=== PATIENT | female | born 1990 | race African-American/Black ===

== ENCOUNTER 2018-07-02 10:01 | Emergency (ER) | payer MEDICAID, OTHER ==
[~2018-07-02] VITALS: Ht 172.7 cm; Wt 108.4 kg
[~2018-07-02 10:01] MED LIST: PREN-129 OR
[2018-07-02 11:28] LABS: Basophils # (auto) 0 uL; Hemoglobin 9.1 g/dL (12.2-16.2); White Blood Cell 8.3 10^3/uL (4.4-10.8)
[2018-07-02 11:33] LABS: Basophils % (auto) 0.4 % (0.0-2.0); Eosinophils # (auto) 0.1 uL; Eosinophils % (auto) 1.6 % (0.0-7.0); Hematocrit 29.2 % (36.0-46.0); Lymphocytes # (auto) 2.5 uL; Mean Corpuscular Hemoglobin 19.2 pg (28.0-32.0); Mean Corpuscular Hgb Conc. 31.3 g/dL (32.0-36.0); Mean Corpuscular Volume 61.4 fL (80.0-100.0); Monocytes # (auto) 0.4 uL; Monocytes % (auto) 5.3 % (0.0-12.0); Neutrophils # (auto) 5.2 uL; Neutrophils % (auto) 62.7 % (37.0-80.0); Nucleated Red Blood Cells % 0.1 %; Platelet Count (auto) 355 10^3/uL (140-450); Red Blood Cells 4.76 10^6/uL (4.0-5.20)
[2018-07-02 11:44] LABS: Red Cell Distribution Width 21.5 % (11.8-14.3)
[2018-07-02 12:26] VITALS: BP 119/54
== END 2018-07-02 14:25 | disposition home or self-care (01) ==
LOC: ER 10:01
DX: O03.9 Complete or unspecified spontaneous abortion without complication (principal); O99.511 Diseases of the respiratory system complicating pregnancy, first trimester; J45.909 Unspecified asthma, uncomplicated; Z3A.01 Less than 8 weeks gestation of pregnancy
CPT/HCPCS: 36415; 76801; 76817; 84702; 85025

== ENCOUNTER 2019-06-16 10:58 | Inpatient (IN) | payer MEDICAID ==
[~2019-06-16] VITALS: Ht 167.6 cm; Wt 121.2 kg
[2019-06-16] MEDS ORDERED: ACETAMINOPHEN 650 mg PER 20 mL UD PO ONE (11:15)
[2019-06-16 11:54] LABS: Basophils # (auto) 0.1 uL; Eosinophils # (auto) 0 uL; Hemoglobin 8.4 g/dL (12.2-16.2); Lymphocytes # (auto) 2.2 uL; Mean Corpuscular Volume 56.5 fL (80.0-100.0); Nucleated Red Blood Cells % 0.1 %
[2019-06-16 11:55] LABS: Basophils % (auto) 0.7 % (0.0-2.0); Hematocrit 27.4 % (36.0-46.0); Lymphocytes % (auto) 17.1 % (10.0-50.0); Mean Corpuscular Hemoglobin 17.4 pg (28.0-32.0); Mean Corpuscular Hgb Conc. 30.8 g/dL (32.0-36.0); Monocytes # (auto) 1.8 uL; Monocytes % (auto) 13.8 % (0.0-12.0); Neutrophils # (auto) 8.9 uL; Neutrophils % (auto) 68.4 % (37.0-80.0); Platelet Count (auto) 309 10^3/uL (140-450); Red Blood Cells 4.85 10^6/uL (4.0-5.20)
[2019-06-16 12:09] LABS: Urine Bacteria FEW /hpf (None Seen); Urine Blood 3+ /uL (Negative); Urine Specific Gravity 1.011 (1.001-1.035); Urine WBC 394 /hpf (0 - 5)
[2019-06-16 12:10] LABS: Red Cell Distribution Width 22.2 % (11.8-14.3)
[2019-06-16 12:29] LABS: Albumin 3.6 g/dL (3.4-5.0); Calcium 8.8 mg/dL (8.5-10.1); Potassium 3.4 mmol/L (3.5-5.1)
[2019-06-16 12:35] LABS: BUN/Creatinine Ratio 6.4; Bilirubin, Total 0.7 mg/dL (0.2-1.0)
[2019-06-16] MEDS ORDERED: SODIUM CHLORIDE 0.9% 1,000 ML IVB ONE (12:55)
[2019-06-16] MEDS ORDERED: PROMETHAZINE HCL 25 MG/ML 1ML IV PRN (13:00)
[2019-06-16 13:23] LABS: Magnesium 2.3 mg/dL (1.6-2.6)
[2019-06-16 13:38] LABS: Alcohol, Urine < 3.0 mg/dL (0-5); Amphetamine Screen, Urine NEGATIVE (NEGATIVE); Barbiturate Scree,Urine NEGATIVE (NEGATIVE); Benzodiazephine Screen, Urine NEGATIVE (NEGATIVE); Cannabinoid Screen, Urine POSITIVE (NEGATIVE); Cocaine Screen, Urine NEGATIVE (NEGATIVE); Phencyclidine Screen, Urine NEGATIVE (NEGATIVE)
[2019-06-16 13:46] LABS: Opiate Scree,Urine NEGATIVE (NEGATIVE)
[2019-06-16] MEDS ORDERED: cefTRIAXone 1GM/50ML D5W 50 ML IV ONE (15:00)
[2019-06-16] MEDS ORDERED: IBUPROFEN 800 MG TAB PO ONE (15:00)
[2019-06-16] MEDS ORDERED: ACETAMINOPHEN 325 MG TAB PO ONE (15:00)
[2019-06-16] MEDS ORDERED: SODIUM CHLORIDE 0.9% 1,000 ML IV ONE (15:00)
[2019-06-16] MEDS ORDERED: MORPHINE SULF INJ 2 MG/ML SYRINGE 1ML IV PRN (18:45)
[2019-06-16] MEDS ORDERED: ALBUTEROL SULF 2.5 MG/0.5ML(0.5%) NEB SOLN NEB PRN (18:45)
[2019-06-16] MEDS ORDERED: IPRATROPIUM BROM 0.5 MG/2.5ML INH SOL NEB PRN (18:45)
[2019-06-16] MEDS ORDERED: ONDANSETRON HCL 4 MG/2 ML VIAL IV PRN (18:45)
[2019-06-16] MEDS: SOD CHL 0.9%/ KCL 20MEQ 1,000 ML IV SCH (19:10)
[2019-06-16 19:20] VITALS: BP 112/65
--- NOTE | 2019-06-16 19:30 | NUR ---
MS admit from [facility] admitted to tele/MS after SBAR received. Patient oriented to Lissett Chavez, RN primary RN, unit, room, bed, and unit policies regarding patient care and visiting hours. Patient weighed by bedscale and encouraged to call if they need something. All questions and concerns addressed, patient verbalized understanding, will continue to monitor Note:
--- NOTE | 2019-06-16 19:55 | NUR ---
RT NOTE PT WAS SEEN BY RT FOR PRN HHN TX. PT STATES NO TREATMENT NEEDED AT THIS TIME. NO SOB OR DISTRESS NOTED. HR 81, RR 16, BS CTA, POX 97% ON ROOM AIR. CONT PRN NEEDED Addendum: 06/16/19 at 2017 by Kelley Munguia RT Amended: Links added.
[2019-06-16 20:00] VITALS: BP 108/55
[2019-06-16 20:20] VITALS: BP 112/65
[2019-06-16] MEDS: HYDROcodone-ACET 5/325MG TAB PO PRN (21:32)
[2019-06-16 22:00] VITALS: BP 108/55
--- NOTE | 2019-06-16 23:25 | NUR ---
RT NOTE PT WAS SEEN BY RT FOR HHN TX. PT TOLERATES WELL VIA MOUTHPIECE. NO ADVERSE REACTION NOTED. NEW HHN SET UP IN ROOM . CONT ORDERED Addendum: 06/16/19 at 2337 by Kelley Munguia RT Amended: Links added.
[2019-06-17] VITALS (8 sets, daily range): BP systolic 105–122; BP diastolic 44–59
[2019-06-17] MEDS: ACETAMINOPHEN 500 MG TAB PO PRN ×2 (05:01→14:59)
[2019-06-17] MEDS: SOD CHL 0.9%/ KCL 20MEQ 1,000 ML IV SCH ×3 (06:07→22:46)
[2019-06-17 06:26] LABS: Basophils # (auto) 0 uL; Eosinophils # (auto) 0 uL; Eosinophils % (auto) 0.1 % (0.0-7.0); Mean Corpuscular Volume 56.7 fL (80.0-100.0); Monocytes # (auto) 0.8 uL; Neutrophils # (auto) 6.5 uL; Nucleated Red Blood Cells % 0.1 %
[2019-06-17 06:28] LABS: Basophils % (auto) 0.2 % (0.0-2.0); Hematocrit 21.7 % (36.0-46.0); Lymphocytes % (auto) 12.1 % (10.0-50.0); Mean Corpuscular Hgb Conc. 31.8 g/dL (32.0-36.0); Monocytes % (auto) 9.5 % (0.0-12.0); Neutrophils % (auto) 78.1 % (37.0-80.0); Platelet Count (auto) 259 10^3/uL (140-450); Red Blood Cells 3.82 10^6/uL (4.0-5.20); White Blood Cell 8.4 10^3/uL (4.4-10.8)
--- NOTE | 2019-06-17 06:40 | NUR ---
PT ASSESSED FOR PRN HHN TX. PT IS ON ROOM AIR, SPO2 99%, HR 98, RR 16. NO S/S OF RESPIRATORY DISTRESS. PT AWARE TO HAVE RT PAGED IF BREATHING TX INDICATED. WILL CONTINUE TO MONITOR.
[2019-06-17 06:41] LABS: BUN/Creatinine Ratio 6.8; Potassium 3.5 mmol/L (3.5-5.1)
--- NOTE | 2019-06-17 06:50 | NUR ---
Received a critical Hemoglobin of 6.9. Paged hospitalist, awaiting call back
[2019-06-17 06:52] LABS: Red Cell Distribution Width 21.9 % (11.8-14.3)
[2019-06-17 06:55] LABS: Hemoglobin 6.9 g/dL (12.2-16.2)
--- NOTE | 2019-06-17 07:16 | NUR ---
Hospitalist Aly called back and received order for Type and Screen and to Transfuse 1 unit PRBC. Acknowledged and read back. Will endorse to shyam JAQUEZ
--- NOTE | 2019-06-17 07:30 | NUR ---
Opening Shift Note Assumed care of patient, awake and alert X 4. No S/S of distress/SOB. Patient c/o head and back pain rates it 01/14. Will administer medications as prescribed by MD. Bed in low position locked and with two side rails. Patient instructed on POC and to call for assistance PRN, will continue to monitor for changes Q1hr and PRN. Signed: 06/17/19 at 1139 by ABDI DUTTA SN <Co-Signature Required> Co-Signed: 06/17/19 at 1139 by Marielle Savage RN
[2019-06-17] MEDS: PANTOPRAZOLE 40 MG TAB PO SCH (09:04)
[2019-06-17] MEDS: HYDROcodone-ACET 5/325MG TAB PO PRN (09:05)
[2019-06-17] MEDS: cefTRIAXone 1GM/50ML D5W 50 ML IV SCH (09:05)
[2019-06-17 11:02] LABS: % Iron Saturation 2.7 % (15-50)
--- NOTE | 2019-06-17 11:05 | NUR ---
DR ZHONG AT BEDSIDE NEW ORDERS RECEIVED. PATIENT UPGRADING TO TELEMETRY. WILL PASS NEW ORDERS TO KAREY JAQUEZ. Signed: 06/17/19 at 1153 by ABDI DUTTA SN <Co-Signature Required> Co-Signed: 06/17/19 at 1153 by Marielle Savage RN
--- NOTE | 2019-06-17 11:05 | NUR ---
IV Blood infusion started. vitals: BP111/63, HR 89, RR 18, SPO2 100% T 100.2 Patient is comfortably laying in bed on 2L NC, no s/s of distress/sob noted/stated.
[2019-06-17 18:48] LABS: Hemoglobin 8.2 g/dL (12.2-16.2)
[2019-06-17 18:51] LABS: Hematocrit 26.2 % (36.0-46.0)
--- NOTE | 2019-06-17 19:06 | NUR ---
Endorsed care to NOC RN.
--- NOTE | 2019-06-17 20:00 | NUR ---
Opening Shift Note Assumed care of patient, awake and alert. No S/S of distress/SOB or pain. Instructed on POC and to call for assist PRN, will continue to monitor for changes Q1hr and PRN. Signed: 06/17/19 at 2226 by ABDI WATTS SN <Co-Signature Required> Co-Signed: 06/17/19 at 2226 by ARSH RUBIO RN
--- NOTE | 2019-06-17 22:00 | NUR ---
HOSPITALIST PAGED PATIENT REQUESTING SLEEPING PILL. WILL AWAIT CALL BACK OR ORDERS.
[2019-06-17] MEDS: TEMAZEPAM 15 MG CAP PO PRN (22:44)
--- NOTE | 2019-06-17 23:00 | NUR ---
Respiratory note: PT RECIEVED ON RA. PT IS AWAKE AND ALERT AT THIS TIME. NO RESP DISTRESS NOTED. SPO2 97%, HR 80, RR 18. BS CLEAR/DIM. NO PRN TX INDICATED AT THIS TIME. WILL CONTINUE TO MONITOR PT T/O SHIFT.
[2019-06-18 05:07] VITALS: BP 96/67
[2019-06-18 06:59] LABS: Basophils # (auto) 0 uL; Eosinophils # (auto) 0.1 uL; Hemoglobin 7.8 g/dL (12.2-16.2); Lymphocytes # (auto) 1.6 uL; Mean Corpuscular Volume 59.3 fL (80.0-100.0); Monocytes # (auto) 0.8 uL
[2019-06-18 07:01] LABS: Basophils % (auto) 0.5 % (0.0-2.0); Calcium 8.2 mg/dL (8.5-10.1); Eosinophils % (auto) 1.7 % (0.0-7.0); Hematocrit 24.4 % (36.0-46.0); Lymphocytes % (auto) 29.1 % (10.0-50.0); Mean Corpuscular Hemoglobin 18.9 pg (28.0-32.0); Mean Corpuscular Hgb Conc. 31.9 g/dL (32.0-36.0); Monocytes % (auto) 14.1 % (0.0-12.0); Neutrophils % (auto) 54.6 % (37.0-80.0); Nucleated Red Blood Cells % 0.2 %; Platelet Count (auto) 254 10^3/uL (140-450); Potassium 3.9 mmol/L (3.5-5.1); Red Blood Cells 4.11 10^6/uL (4.0-5.20); White Blood Cell 5.5 10^3/uL (4.4-10.8)
--- NOTE | 2019-06-18 07:01 | NUR ---
Respiratory note: ROUTINE PRN TX ASSESSMENT DONE. HR 73, RR 16, POX 98% ON RA, BREATH SOUNDS ARE CLEAR/DIMINISHED. NO SOB OR DISTRESS NOTED AT THIS TIME. PT WAS NOTIFY TO HAVE RT PAGE FOR NEEDED MN TX.
[2019-06-18 07:06] LABS: BUN/Creatinine Ratio 7.5
--- NOTE | 2019-06-18 07:16 | NUR ---
Opening Shift Note Assumed care of patient, awake and alert. No S/S of distress/SOB or pain. Instructed on POC and to call for assist PRN, will continue to monitor for changes Q1hr and PRN.
[2019-06-18 08:09] VITALS: BP 112/61
[2019-06-18 09:00] VITALS: BP 112/61
[2019-06-18] MEDS: cefTRIAXone 1GM/50ML D5W 50 ML IV SCH (09:05)
[2019-06-18] MEDS: PANTOPRAZOLE 40 MG TAB PO SCH (09:05)
[2019-06-18] MEDS: SOD CHL 0.9%/ KCL 20MEQ 1,000 ML IV SCH ×3 (09:06→23:46)
--- NOTE | 2019-06-18 10:44 | NUR ---
, Dr. Tan at bedside Updated pt and family on POC.
[2019-06-18] MEDS ORDERED: SODIUM FERR GLUC 62.5MG/5ML 125 MG in SODIUM CHL 0.9% 100 ML IV ONE (12:15)
[2019-06-18 13:00] VITALS: BP 124/72
--- NOTE | 2019-06-18 13:30 | NUR ---
OUTSIDE SALES ACCOUNT EXECUTIVE at bedside, Wilda Britt For urology consult. Updated pt on POC.
[2019-06-18 17:00] VITALS: BP 112/70
--- NOTE | 2019-06-18 17:08 | NUR ---
, Dr. Ugalde at bedside For hematology consult. Reviewed POC with patient.
[2019-06-18] MEDS: FERROUS SULFATE 325 MG TAB PO SCH (19:06)
--- NOTE | 2019-06-18 19:20 | NUR ---
Opening Shift Note Received report and assumed care of patient, awake and alert. No S/S of distress/SOB or pain. Instructed patient to call for assist if needed and patient verbalized understanding. Will continue to monitor .
--- NOTE | 2019-06-18 19:31 | NUR ---
Campbell catheter insertion Patient assessed and determined to be in need of campbell catheter. Order obtained from MD. Patient educated on catheter and reason for insertion. All questions answered. Campbell catheter 16 gauge Mohawk inserted with clean sterile technique. Patient tolerated well.
[2019-06-18 22:00] VITALS: BP 121/70
--- NOTE | 2019-06-18 22:16 | NUR ---
Respiratory note: NO PRN TX GIVEN AT THIS TIME, NOT INDICATED. NO SOB NOTED. SPO2 100% ON RA, HR 77, RR 20. PT COMPLAINING OF PAIN DUE TO EUCEDA CATHETER, RN NOTIFIED.
[2019-06-18] MEDS: TEMAZEPAM 15 MG CAP PO PRN (23:45)
[2019-06-19 05:49] VITALS: BP 114/69
--- NOTE | 2019-06-19 06:30 | NUR ---
Lau catheter insertion Lau catheter inserted for renal scan today.Patient educated on catheter and reason for insertion. All questions answered. Lau catheter 14 guage Ugandan inserted with clean sterile technique. Patient tolerated well.
[2019-06-19 07:11] LABS: Basophils # (auto) 0 uL; Eosinophils # (auto) 0.2 uL; Hemoglobin 8.3 g/dL (12.2-16.2); Monocytes # (auto) 0.4 uL; Neutrophils # (auto) 2.9 uL; Nucleated Red Blood Cells % 0.2 %; Platelet Count (auto) 320 10^3/uL (140-450)
[2019-06-19 07:13] LABS: Basophils % (auto) 0.5 % (0.0-2.0); Eosinophils % (auto) 3.6 % (0.0-7.0); Hematocrit 25.8 % (36.0-46.0); Lymphocytes # (auto) 1.6 uL; Lymphocytes % (auto) 31.2 % (10.0-50.0); Mean Corpuscular Hemoglobin 19.1 pg (28.0-32.0); Mean Corpuscular Hgb Conc. 32.1 g/dL (32.0-36.0); Mean Corpuscular Volume 59.5 fL (80.0-100.0); Monocytes % (auto) 8.6 % (0.0-12.0); Neutrophils % (auto) 56.1 % (37.0-80.0); Red Blood Cells 4.35 10^6/uL (4.0-5.20); White Blood Cell 5.1 10^3/uL (4.4-10.8)
[2019-06-19 07:15] LABS: Red Cell Distribution Width 26.1 % (11.8-14.3)
[2019-06-19 07:23] LABS: Calcium 8.9 mg/dL (8.5-10.1)
[2019-06-19 07:25] LABS: BUN/Creatinine Ratio 8.8
--- NOTE | 2019-06-19 07:25 | NUR ---
Open Shift Note Received report on patient, awake and sitting up in bed. Patient shows no signs of distress at this time. Patient states having no pain at this time but slight discomfort with having the Lau placed. Discussed POC with patient and plans for renal scan. Bed in lowest locked position, side rails up x2 and call light within reach. Will continue to monitor.
[2019-06-19] MEDS: cefTRIAXone 1GM/50ML D5W 50 ML IV SCH (08:50)
[2019-06-19] MEDS: PANTOPRAZOLE 40 MG TAB PO SCH (08:51)
[2019-06-19] MEDS: FERROUS SULFATE 325 MG TAB PO SCH (08:51)
[2019-06-19 09:00] VITALS: BP 111/62
--- NOTE | 2019-06-19 10:53 | NUR ---
Respiratory note: PT REFUSED PRN MED NEB TX, NO TX DESIRED NOR INDICATED. NO DISTRESS NOTED, DENIES SOB. HR 76 RR 16 SPO2 100% ON RA BREATH SOUNDS ARE CLEAR/DIMINISHED. PT AND RN AWARE TO HAVE RT PAGED IF NEEDED.
[2019-06-19] MEDS ORDERED: NITR-39 PO (11:43)
[2019-06-19] MEDS ORDERED: FER325T PO (11:43)
[2019-06-19] MEDS ORDERED: SODIUM FERR GLUC 62.5MG/5ML 125 MG in SODIUM CHL 0.9% 100 ML IV SCH (12:00)
[2019-06-19] MEDS ORDERED: FUROSEMIDE 40 MG/4 ML VIAL ONE (12:38)
[2019-06-19 13:00] VITALS: BP 109/72
--- NOTE | 2019-06-19 15:40 | NUR ---
Left AMA Patient stated she needed to leave due to event at her daughter's school. Patient educated on risks of leaving AMA and still pending test results. Patient verbalized understanding and signed AMA form. IV removed using clean sterile technique, dressing applied and catheter intact. Lau catheter removed using clean sterile technique. No signs of trauma, patient tolerated well. Patient stated she will follow up to determine results of renal exam. Patient taken to vehicle via wheelchair with all personal belongings. No signs of distress.
== END 2019-06-19 15:45 | disposition left against medical advice (07) | DRG 720 ==
LOC: ER 11:01 → OVERFLOW 11:02 → EAST 19:20 → TELE-EAST 06-17 11:00 → EAST 06-19 00:03
PROVIDERS: ADMIT Nurse Practitioner Acute Care; ATTEND Internal Medicine
PROC: 30233N1 Transfusion of Nonautologous Red Blood Cells into Peripheral Vein, Percutaneous Approach (ICD-10-PCS; principal; 2019-06-17)
DX: A41.9 Sepsis, unspecified organism (principal); N17.0 Acute kidney failure with tubular necrosis; N39.0 Urinary tract infection, site not specified; N13.30 Unspecified hydronephrosis; E66.01 Morbid (severe) obesity due to excess calories; Z68.41 Body mass index [BMI] 40.0-44.9, adult; E86.0 Dehydration; E87.6 Hypokalemia; J45.909 Unspecified asthma, uncomplicated; D50.0 Iron deficiency anemia secondary to blood loss (chronic); R19.7 Diarrhea, unspecified; Z53.29 Procedure and treatment not carried out because of patient's decision for other reasons; N92.0 Excessive and frequent menstruation with regular cycle; Z83.3 Family history of diabetes mellitus; Z82.49 Family history of ischemic heart disease and other diseases of the circulatory system
CPT/HCPCS: 36415; 36430; 71045; 74176; 78707; 80048; 80053; 80307; 81001; 81025; 82150; 82270; 83540; 83550; 83605; 83690; 83735; 84443; 84702; 85014; 85018; 85025; 86850; 86900; 86901; 86920; 87040; 87045; 87086; 87427; 87493; 94640; 94761; 96361; 96365; 96367; 96375; G0378; J0696; J2405

== ENCOUNTER 2020-03-23 01:00 | Observation (INO) | payer MEDICAID ==
[~2020-03-23] VITALS: Ht 172.7 cm; Wt 127.0 kg
[~2020-03-23 01:00] MED LIST changes: +FER325T PO; +NITR-39 PO; -PREN-129 OR
== END 2020-03-23 02:05 | disposition home or self-care (01) ==
LOC: LDRP 01:00
PROVIDERS: ADMIT Specialist; ATTEND Specialist
DX: O26.892 Other specified pregnancy related conditions, second trimester (principal); R10.2 Pelvic and perineal pain; R39.15 Urgency of urination; O34.219 Maternal care for unspecified type scar from previous cesarean delivery; O99.512 Diseases of the respiratory system complicating pregnancy, second trimester; J45.909 Unspecified asthma, uncomplicated; Z87.59 Personal history of other complications of pregnancy, childbirth and the puerperium; Z3A.27 27 weeks gestation of pregnancy
CPT/HCPCS: 59025; 81002; G0378

== ENCOUNTER 2020-04-15 00:56 | Emergency (ER) | payer MEDICAID ==
[~2020-04-15] VITALS: Ht 170.2 cm; Wt 86.2 kg
[2020-04-15 02:13] LABS: Urine Bacteria MOD /hpf (None Seen); Urine Blood Negative /uL (Negative); Urine Mucus FEW (None Seen); Urine Specific Gravity 1.009 (1.001-1.035); Urine WBC 6 /hpf (0 - 5)
[2020-04-15 02:14] LABS: Basophils # (auto) 0 10 ^3/uL (0-0.2); Basophils % (auto) 0.4 % (0.0-2.0); Eosinophils # (auto) 0.2 10 ^3/uL (0-0.8); Eosinophils % (auto) 1.5 % (0.0-7.0); Hematocrit 36.8 % (36.0-46.0); Lymphocytes # (auto) 2.2 10 ^3/uL (0.4-5.4); Lymphocytes % (auto) 18.6 % (10.0-50.0); Mean Corpuscular Hemoglobin 30.4 pg (28.0-32.0); Mean Corpuscular Hgb Conc. 35.3 g/dL (32.0-36.0); Monocytes # (auto) 0.9 10 ^3/uL (0-1.3); Monocytes % (auto) 7.5 % (0.0-12.0); Neutrophils # (auto) 8.6 10 ^3/uL (1.6-8.6); Platelet Count (auto) 228 10^3/uL (140-450); Red Blood Cells 4.28 10^6/uL (4.0-5.20); Red Cell Distribution Width 15.2 % (11.8-14.3); White Blood Cell 11.9 10^3/uL (4.4-10.8)
[2020-04-15 02:31] LABS: Albumin 2.4 g/dL (3.4-5.0); Calcium 7.5 mg/dL (8.5-10.1); Potassium 3.4 mmol/L (3.5-5.1)
[2020-04-15 02:34] LABS: Bilirubin, Total 0.3 mg/dL (0.2-1.0); Total Protein 6.8 g/dL (6.4-8.2)
[2020-04-15 03:04] VITALS: BP 118/68
[2020-04-15] MEDS ORDERED: PREN-96 PO (08:20)
== END 2020-04-15 03:22 | disposition still patient (30) ==
LOC: ER 00:56 → EDBD 00:56 → ER 03:22
DX: O26.893 Other specified pregnancy related conditions, third trimester (principal); M25.511 Pain in right shoulder; R10.9 Unspecified abdominal pain; Z3A.32 32 weeks gestation of pregnancy; V49.9XXA Car occupant (driver) (passenger) injured in unspecified traffic accident, initial encounter; Y93.89 Activity, other specified; Y92.89 Other specified places as the place of occurrence of the external cause; Y99.8 Other external cause status
CPT/HCPCS: 36415; 80053; 81001; 85025

== ENCOUNTER 2020-04-15 03:50 | Observation (INO) | payer MEDICAID ==
[~2020-04-15] VITALS: Ht 172.7 cm; Wt 130.2 kg
[2020-04-15] MEDS ORDERED: D5W/LACTATED RINGERS 1,000 ML IV SCH (04:36)
[2020-04-15 06:56] LABS: Alcohol, Urine < 3.0 mg/dL (0-10); Amphetamine Screen, Urine NEGATIVE (NEGATIVE); Barbiturate Scree,Urine NEGATIVE (NEGATIVE); Benzodiazephine Screen, Urine NEGATIVE (NEGATIVE); Cannabinoid Screen, Urine NEGATIVE (NEGATIVE); Cocaine Screen, Urine NEGATIVE (NEGATIVE); Opiate Scree,Urine NEGATIVE (NEGATIVE); Phencyclidine Screen, Urine NEGATIVE (NEGATIVE)
[2020-04-15] MEDS ORDERED: PREN-96 PO (08:20)
== END 2020-04-15 12:00 | disposition home or self-care (01) ==
LOC: LDRP 03:50
PROVIDERS: ADMIT Obstetrics & Gynecology; ATTEND Obstetrics & Gynecology
DX: O9A.213 Injury, poisoning and certain other consequences of external causes complicating pregnancy, third trimester (principal); O26.893 Other specified pregnancy related conditions, third trimester; R10.9 Unspecified abdominal pain; Z3A.36 36 weeks gestation of pregnancy; Z79.899 Other long term (current) drug therapy; V89.2XXA Person injured in unspecified motor-vehicle accident, traffic, initial encounter; Y93.89 Activity, other specified; Y92.89 Other specified places as the place of occurrence of the external cause; Y99.8 Other external cause status
CPT/HCPCS: 59025; 76815; 80307; 81002; 96360; 96361; G0378

== ENCOUNTER 2020-04-20 10:08 | Observation (INO) | payer MEDICAID ==
[~2020-04-20 10:08] MED LIST changes: +PREN-96 PO
== END 2020-04-20 11:55 | disposition home or self-care (01) ==
LOC: LDRP 10:08
PROVIDERS: ADMIT Specialist; ATTEND Specialist
DX: O9A.213 Injury, poisoning and certain other consequences of external causes complicating pregnancy, third trimester (principal); O34.219 Maternal care for unspecified type scar from previous cesarean delivery; Z87.09 Personal history of other diseases of the respiratory system; Z87.59 Personal history of other complications of pregnancy, childbirth and the puerperium; Z3A.31 31 weeks gestation of pregnancy; V89.2XXA Person injured in unspecified motor-vehicle accident, traffic, initial encounter; Y93.89 Activity, other specified; Y92.410 Unspecified street and highway as the place of occurrence of the external cause
CPT/HCPCS: 59025; 76818; 81002; G0378

== ENCOUNTER 2020-04-27 13:44 | Observation (INO) | payer MEDICAID | END 2020-04-27 14:15 | disposition home or self-care (01) | LOC: LDRP 13:44 | PROVIDERS: ADMIT Obstetrics & Gynecology; ATTEND Obstetrics & Gynecology | DX: O36.4XX0 Maternal care for intrauterine death, not applicable or unspecified (principal); Z3A.32 32 weeks gestation of pregnancy | CPT/HCPCS: 59025; 76818; 81002; G0378 ==

== ENCOUNTER 2020-05-13 11:40 | Observation (INO) | payer MEDICAID ==
[~2020-05-13] VITALS: Ht 172.7 cm; Wt 133.8 kg
[2020-05-13] MEDS ORDERED: CYAN500L3 PO (12:32)
== END 2020-05-13 13:00 | disposition home or self-care (01) ==
LOC: LDRP 11:40
PROVIDERS: ADMIT Specialist; ATTEND Specialist
DX: O9A.213 Injury, poisoning and certain other consequences of external causes complicating pregnancy, third trimester (principal); Z3A.35 35 weeks gestation of pregnancy; V89.2XXA Person injured in unspecified motor-vehicle accident, traffic, initial encounter; Y93.89 Activity, other specified; Y92.410 Unspecified street and highway as the place of occurrence of the external cause
CPT/HCPCS: 59025; 76818; 81002; G0378

== ENCOUNTER 2020-05-20 11:52 | Observation (INO) | payer MEDICAID ==
[~2020-05-20 11:52] MED LIST changes: +CYAN500L3 PO; -FER325T PO; -NITR-39 PO
== END 2020-05-20 12:55 | disposition home or self-care (01) ==
LOC: LDRP 11:52
PROVIDERS: ADMIT Obstetrics & Gynecology; ATTEND Obstetrics & Gynecology
DX: Z34.83 Encounter for supervision of other normal pregnancy, third trimester (principal); Z3A.36 36 weeks gestation of pregnancy; V89.2XXA Person injured in unspecified motor-vehicle accident, traffic, initial encounter; Y93.89 Activity, other specified; Y92.89 Other specified places as the place of occurrence of the external cause; Y99.8 Other external cause status
CPT/HCPCS: 59025; 76818; 81002; G0378

== ENCOUNTER 2020-05-27 10:30 | Observation (INO) | payer MEDICAID | END 2020-05-27 12:50 | disposition home or self-care (01) | LOC: LDRP 10:30 → UNDOADMOB 10:30 → UNDODISOB 12:50 | PROVIDERS: ADMIT Specialist; ATTEND Specialist | DX: Z34.93 Encounter for supervision of normal pregnancy, unspecified, third trimester (principal); Z87.59 Personal history of other complications of pregnancy, childbirth and the puerperium; Z3A.37 37 weeks gestation of pregnancy | CPT/HCPCS: 59025; 76818; 81002; G0378 ==

== ENCOUNTER 2020-05-31 16:30 | Observation (INO) | payer MEDICAID | END 2020-05-31 17:45 | disposition home or self-care (01) | LOC: LDRP 16:30 → UNDOADMOB 16:30 → UNDODISOB 17:45 | PROVIDERS: ADMIT Obstetrics & Gynecology; ATTEND Obstetrics & Gynecology | DX: O62.9 Abnormality of forces of labor, unspecified (principal); O36.8130 Decreased fetal movements, third trimester, not applicable or unspecified; O34.63 Maternal care for abnormality of vagina, third trimester; N89.8 Other specified noninflammatory disorders of vagina; Z3A.37 37 weeks gestation of pregnancy | CPT/HCPCS: 59025; 81002; G0378 ==

== ENCOUNTER 2020-06-02 10:50 | Observation (INO) | payer MEDICAID ==
[~2020-06-02] VITALS: Ht 167.6 cm; Wt 122.5 kg
[2020-06-02] MEDS ORDERED: LACTATED RINGER'S 1,000 ML IV ONE (12:45)
[2020-06-02] MEDS ORDERED: TERBUTALINE SULFATE 1 MG/ML 1ML VIAL SC ONE ×2 (15:15→16:00)
== END 2020-06-02 16:50 | disposition home or self-care (01) ==
LOC: LDRP 10:50 → UNDOADMOB 10:50 → UNDODISOB 16:50
PROVIDERS: ADMIT Specialist; ATTEND Specialist
DX: O62.9 Abnormality of forces of labor, unspecified (principal); O34.63 Maternal care for abnormality of vagina, third trimester; N89.8 Other specified noninflammatory disorders of vagina; Z3A.38 38 weeks gestation of pregnancy; Z79.899 Other long term (current) drug therapy
CPT/HCPCS: 59025; 76818; 81002; 96360; 96372; G0378; J3105; 96365

== ENCOUNTER → 2020-06-07 | Outpatient (CLI) | payer MEDICAID ==
--- NOTE | 2020-06-07 11:06 | NUR ---
PATIENT IS HERE FOR COVID TEST, CONSENTS WERE OBTAINED. IN HOUSE COVID TEST WAS DONE AND PATIENT TOLERATED WELL.
== END | disposition home or self-care (01) ==
LOC: LAB 10:20 → UNDOADMOB 10:20 → LDRP 10:20 → UNDODISOB 11:25 → EDSTATUS 06-18 10:21
PROVIDERS: ATTEND Specialist
DX: Z20.828 Contact with and (suspected) exposure to other viral communicable diseases (principal)
CPT/HCPCS: G0378

== ENCOUNTER 2020-06-09 03:50 | Inpatient (IN) | payer MEDICAID ==
[~2020-06-09] VITALS: Ht 172.7 cm; Wt 131.5 kg
[2020-06-09] VITALS (12 sets, daily range): BP systolic 95–130; BP diastolic 55–88
[2020-06-09] MEDS ORDERED: LACTATED RINGER'S 1,000 ML IV ONE (04:15)
[2020-06-09] MEDS ORDERED: ceFAZolin 1GM/50ML 50 ML IV ONE ×2 (04:15→07:20)
[2020-06-09] MEDS ORDERED: LACTATED RINGER'S 1,000 ML IV SCH (04:15)
[2020-06-09 05:58] LABS: Urine Bacteria FEW /hpf (None Seen); Urine Blood Negative /uL (Negative); Urine Mucus FEW (None Seen); Urine Specific Gravity 1.027 (1.001-1.035); Urine WBC 3 /hpf (0 - 5)
[2020-06-09 06:01] LABS: Basophils # (auto) 0 10 ^3/uL (0-0.2); Basophils % (auto) 0.2 % (0.0-2.0); Eosinophils # (auto) 0.1 10 ^3/uL (0-0.8); Eosinophils % (auto) 1.5 % (0.0-7.0); Hematocrit 35.2 % (36.0-46.0); Hemoglobin 12.6 g/dL (12.2-16.2); Lymphocytes # (auto) 1.9 10 ^3/uL (0.4-5.4); Lymphocytes % (auto) 20.5 % (10.0-50.0); Mean Corpuscular Hemoglobin 29.9 pg (28.0-32.0); Mean Corpuscular Hgb Conc. 35.9 g/dL (32.0-36.0); Mean Corpuscular Volume 83.2 fL (80.0-100.0); Monocytes # (auto) 0.7 10 ^3/uL (0-1.3); Monocytes % (auto) 7.4 % (0.0-12.0); Neutrophils # (auto) 6.4 10 ^3/uL (1.6-8.6); Neutrophils % (auto) 70.4 % (37.0-80.0); Nucleated Red Blood Cells % 0.1 %; Platelet Count (auto) 220 10^3/uL (140-450); Red Blood Cells 4.23 10^6/uL (4.0-5.20); Red Cell Distribution Width 14.9 % (11.8-14.3); White Blood Cell 9.1 10^3/uL (4.4-10.8)
[2020-06-09 06:09] LABS: INR 0.96 (0.9-1.15); Partial Thromboplastin Time 27.1 sec (23.0-31.2)
[2020-06-09 06:12] LABS: Albumin 2.6 g/dL (3.4-5.0); Calcium 8.4 mg/dL (8.5-10.1); Potassium 3.4 mmol/L (3.5-5.1)
[2020-06-09 06:18] LABS: Bilirubin, Total 0.4 mg/dL (0.2-1.0); Total Protein 6.3 g/dL (6.4-8.2)
[2020-06-09 06:23] LABS: Alcohol, Urine < 3.0 mg/dL (0-10); Amphetamine Screen, Urine NEGATIVE (NEGATIVE); Barbiturate Scree,Urine NEGATIVE (NEGATIVE); Benzodiazephine Screen, Urine NEGATIVE (NEGATIVE); Cannabinoid Screen, Urine NEGATIVE (NEGATIVE); Cocaine Screen, Urine NEGATIVE (NEGATIVE); Opiate Scree,Urine NEGATIVE (NEGATIVE); Phencyclidine Screen, Urine NEGATIVE (NEGATIVE)
[2020-06-09] MEDS ORDERED: TETRACAINE 1% INJ 2 ML VIAL IJ ONE (06:55)
[2020-06-09] MEDS ORDERED: OXYTOCIN 10UNIT/ML 1ML VIAL IV ONE (07:28)
[2020-06-09] MEDS ORDERED: MIDAZOLAM HCL 1MG/1ML-2 ML VIAL ONE (07:45)
[2020-06-09] MEDS ORDERED: MORPHINE SULF(PF) 0.5MG/ML 10ML VIAL ONE (07:45)
[2020-06-09] MEDS ORDERED: fentaNYL CITRATE 100 MCG/2 ML VL ONE (07:45)
[2020-06-09] MEDS ORDERED: ePHEDrine SULFATE 50 MG/ML AMP ONE (08:26)
[2020-06-09] MEDS ORDERED: GUM (CHEWING) 1 GUM CHEW CHEW ONE (09:30)
[2020-06-09] MEDS ORDERED: HYDROmorphone HCL 2 MG/ML VL IV PRN ×2 (09:30→09:45)
[2020-06-09] MEDS ORDERED: ONDANSETRON HCL 4 MG/2 ML VIAL IV PRN ×2 (09:30→09:45)
[2020-06-09] MEDS ORDERED: ACETAMINOPHEN IV 1000 MG/100ML (10MG/ML) IV SCH (09:30)
[2020-06-09] MEDS ORDERED: KETOROLAC TROMETH 30 MG/ML 1ML VIAL IV PRN ×2 (09:30→09:45)
[2020-06-09] MEDS ORDERED: NALBUPHINE HCL 10 MG/1ml INJECTION SUBCUT ONE (09:45)
[2020-06-09] MEDS ORDERED: ePHEDrine SULFATE 50 MG/ML AMP IV PRN (09:45)
[2020-06-09] MEDS ORDERED: MIDAZOLAM HCL 1MG/1ML-2 ML VIAL IV PRN (09:45)
[2020-06-09] MEDS ORDERED: NALOXONE HCL 0.4 MG/ML VIAL IV PRN (09:45)
[2020-06-09] MEDS ORDERED: LABETALOL HCL 5 MG/ML 4ML SYRINGE IV PRN (09:45)
[2020-06-09] MEDS ORDERED: DexAMETHasone SOD PHOS 10MG/1ML VIAL INJ IV PRN (09:45)
[2020-06-09] MEDS: diphenhdrAMINE HCL 50 MG/1 ML VL IV PRN ×3 (10:43→21:50)
--- NOTE | 2020-06-09 11:50 | NUR ---
RECEIVED REPORT FROM GISELE CARRANZA.
--- NOTE | 2020-06-09 12:10 | NUR ---
Patient A/A/Ox4, abdominal binder and bilateral SCD's are in place, IV fluids placed on pump and infusing per order, incisional site dressing clean/dry/intact and Lau Catheter to gravity draining yellow urine. Incentive Spirometer at bedside and instruction on proper use with return demonstration done by patient.
[2020-06-09] MEDS: LACTATED RINGER'S 1,000 ML IV SCH ×2 (15:06→17:30)
[2020-06-09] MEDS: ceFAZolin 1GM/50ML 50 ML IV SCH ×2 (15:07→23:31)
[2020-06-09] MEDS: KETOROLAC TROMETH 30 MG/ML 1ML VIAL IV PRN (17:58)
--- NOTE | 2020-06-09 21:30 | NUR ---
Ambulation: Pericare performed, peripad and underwear placed, new gown provided. Patient OOB with standby assistance by RN. Patient ambulated the hallway while pushing open crib with steady gait. Bed linen changed. Patient ambulated back to bed with steady gait and no distress noted.
[2020-06-10] VITALS (9 sets, daily range): BP systolic 104–139; BP diastolic 55–81
[2020-06-10] MEDS: LACTATED RINGER'S 1,000 ML IV SCH ×2 (01:29→09:30)
[2020-06-10] MEDS: KETOROLAC TROMETH 30 MG/ML 1ML VIAL IV PRN (02:37)
[2020-06-10 05:06] LABS: RPR Non Reactive (Non Reactive)
[2020-06-10] MEDS ORDERED: BISACODYL 10 MG RECT SUPP PR PRN (06:30)
[2020-06-10] MEDS ORDERED: HYDROcodone-ACET 5/325MG TAB PO PRN (06:30)
[2020-06-10] MEDS: SIMETHICONE 80 MG CHEWABLE TABLET PO SCH ×5 (07:00→22:05)
[2020-06-10 07:01] LABS: Basophils # (auto) 0 10 ^3/uL (0-0.2); Basophils % (auto) 0.2 % (0.0-2.0); Eosinophils # (auto) 0.1 10 ^3/uL (0-0.8); Eosinophils % (auto) 1.6 % (0.0-7.0); Hemoglobin 12.2 g/dL (12.2-16.2); Lymphocytes # (auto) 1.4 10 ^3/uL (0.4-5.4); Lymphocytes % (auto) 15.1 % (10.0-50.0); Mean Corpuscular Hemoglobin 29.9 pg (28.0-32.0); Mean Corpuscular Hgb Conc. 35.9 g/dL (32.0-36.0); Mean Corpuscular Volume 83.2 fL (80.0-100.0); Monocytes # (auto) 0.8 10 ^3/uL (0-1.3); Monocytes % (auto) 8.3 % (0.0-12.0); Neutrophils # (auto) 7.1 10 ^3/uL (1.6-8.6); Neutrophils % (auto) 74.8 % (37.0-80.0); Platelet Count (auto) 204 10^3/uL (140-450); Red Blood Cells 4.08 10^6/uL (4.0-5.20); Red Cell Distribution Width 15.2 % (11.8-14.3); White Blood Cell 9.5 10^3/uL (4.4-10.8)
[2020-06-10] MEDS: HYDROcodone-ACET 5/325MG TAB PO PRN ×3 (07:04→22:06)
[2020-06-10] MEDS: ceFAZolin 1GM/50ML 50 ML IV SCH (07:05)
[2020-06-10] MEDS: DOCUSATE CALCIUM 240 MG CAP PO SCH (10:15)
[2020-06-10] MEDS: DOCUSATE SOD 100 MG CAP PO SCH ×2 (10:15→22:05)
[2020-06-10] MEDS: IBUPROFEN 800 MG TAB PO PRN ×2 (10:15→18:38)
--- NOTE | 2020-06-10 10:29 | NUR ---
Assessment Social Service consult for history of THC. Patient and baby drug screen is negative. Patient resides with family and will have assistance with baby upon discharge. Patient has all supplies as well as car seat for baby and will be bottle and . Patient has medical insurance for herself and baby and will be following up with provider appt post discharge. Patient has transportation home upon discharge.
[2020-06-11] MEDS: IBUPROFEN 800 MG TAB PO PRN ×3 (02:38→18:31)
[2020-06-11 02:40] VITALS: BP 117/65
[2020-06-11] MEDS: HYDROcodone-ACET 5/325MG TAB PO PRN ×3 (05:29→22:21)
[2020-06-11] MEDS: SIMETHICONE 80 MG CHEWABLE TABLET PO SCH ×4 (05:30→22:16)
[2020-06-11 07:00] VITALS: BP 105/68
[2020-06-11 10:30] VITALS: BP 123/77
[2020-06-11] MEDS: DOCUSATE CALCIUM 240 MG CAP PO SCH (10:30)
[2020-06-11] MEDS: DOCUSATE SOD 100 MG CAP PO SCH ×2 (10:30→22:16)
[2020-06-11 14:30] VITALS: BP 126/84
[2020-06-11 22:57] VITALS: BP 121/73
[2020-06-12 03:27] VITALS: BP 116/70
--- NOTE | 2020-06-12 05:05 | NUR ---
Nathan Landers pt to go home with tanesha and have the tanesha removed in the office
[2020-06-12] MEDS: SIMETHICONE 80 MG CHEWABLE TABLET PO SCH (05:44)
[2020-06-12] MEDS: IBUPROFEN 800 MG TAB PO PRN (05:50)
[2020-06-12 07:20] VITALS: BP 105/76
[2020-06-12] MEDS: HYDROcodone-ACET 5/325MG TAB PO PRN (07:25)
--- NOTE | 2020-06-12 09:00 | NUR ---
Discharge: Discharge instructions given as ordered. Pt encouraged to follow up with CENTERLESS GRINDER OPERATOR as instructed. All questions and concerns addressed. Patient verbalized understanding. Medication reconciliation completed and copy given to patient. Patient encouraged to prepare to depart unit.
--- NOTE | 2020-06-12 09:30 | NUR ---
Discharge: Patient taken to vehicle via wheelchair with all personal belongings, accompanied by staff and family member. No distress noted at time of departure, no adverse changes in status since initial assessment.
--- NOTE | 2020-06-12 10:00 | NUR ---
SAYRA CPS EMERGENCY SERVICE WORKER AT BEDSIDE, TALKING TO THE PT IN REGARDS CPS HOLDING THE BABY. PATIENT VERBALIZED UNDERSTANDING.
== END 2020-06-12 09:30 | disposition home or self-care (01) | DRG 540 ==
LOC: LDRP 03:50
PROVIDERS: ADMIT Obstetrics & Gynecology; ATTEND Obstetrics & Gynecology
PROC: 10D00Z1 Extraction of Products of Conception, Low, Open Approach (ICD-10-PCS; principal; 2020-06-09 07:45)
DX: O34.211 Maternal care for low transverse scar from previous cesarean delivery (principal); O99.52 Diseases of the respiratory system complicating childbirth; Z3A.39 39 weeks gestation of pregnancy; Z37.0 Single live birth; Z91.018 Allergy to other foods; Z91.010 Allergy to peanuts; J45.909 Unspecified asthma, uncomplicated
CPT/HCPCS: 36415; 59025; 80053; 80307; 81001; 81002; 85025; 85610; 85730; 86592; 86850; 86900; 86901; 96360; 96361; G0378; J0131; J0690; J1885; J2250